=== PATIENT | female | born 1985 | race Hispanic/Latino ===

== ENCOUNTER 2022-07-19 14:00 | Emergency (ER) | payer OTHER, SELFPAY ==
[2022-07-19] VITALS (8 sets, daily range): BP systolic 125–131; BP diastolic 80–92; PULSE 70–99; RESP 16–20; TEMP 36.7–37.3; O2SAT 97–100; BMI 51.5
--- NOTE | 2022-07-19 14:16 | DI.RAD.S_ITS ---
PROCEDURE: XR CHEST 2V INDICATIONS: cough, SOB TECHNIQUE: 2 views of the chest were acquired. COMPARISON: None. FINDINGS: Surgical changes and devices: None. Lungs and pleura: Lungs are clear. No pleural effusions or pneumothorax. Mediastinum: Mediastinal contours are normal. Heart size is normal. Bones and chest wall: No suspicious bony abnormalities. Soft tissues appear unremarkable. IMPRESSION: No acute cardiopulmonary process demonstrated radiographically. Dictated by: Akash Pollack M.D. on 07/19/2022 at 14:48 Approved by: Akash Pollack M.D. on 07/19/2022 at 14:49
[2022-07-19 15:00] LABS: Influenza A - CEPHEID Flu A NEGATIVE (NEGATIVE); Influenza B - CEPHEID Flu B NEGATIVE (NEGATIVE); Respiratory Syncytial Virus Negative (Negative)
[2022-07-19 15:08] LABS: COVID-19 CEPHEID 4-PLEX PCR Negative (Negative)
--- NOTE | 2022-07-19 19:12 | PC.NURSE ---
Pt works at group [employer], was recently in a home that was covid positive. Pt feeling unwell.
--- NOTE | 2022-07-19 19:46 | ED.URI ---
HPI - URI/Sore Throat <Elmer Aguero PA-C - Last Filed: 07/19/22 20:34> General Chief Complaint: Upper Respiratory Symptoms Stated Complaint: lungs feel like they are on fire Time Seen by Provider: 07/19/22 18:32 History of Present Illness HPI Narrative: 36-year-old female presents to the ED with 1 week of URI symptoms. 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 Patient complains of a cough, trouble breathing. Patient denies fever, chills, nausea, vomiting, diarrhea, abdominal pain. Patient endorses past history of asthma. Patient does not have an albuterol inhaler, is requesting 1 today. Patient however denies wheezing over the last week. Patient is also on-call 24 hours a day which makes it hard for her to get any rest. Patient is requesting some time off so she can convalesce from this infection. Related Data Previous Rx's Medication Instructions Recorded albuterol sulfate 90 mcg/actuation 2 puff inhalation Q4-6H PRN 07/19/22 aerosol inhaler (ProAir HFA) shortness of breath or wheezing #6.7 grams benzonatate 200 mg capsule 200 mg PO TID PRN cough #30 caps 07/19/22 Allergies Allergy/AdvReac Type Severity Reaction Status Date / Time hydrocodone [HYDROCODONE] Allergy Unknown Unverified 11/01/17 12:34 Review of Systems <Elmer Aguero PA-C - Last Filed: 07/19/22 20:34> Review of Systems ROS Unobtainable: All systems reviewed & are unremarkable except as noted in HPI and below Constitutional Constitutional: Denies chills, Reports fatigue, Denies fever(s), Denies frequent falls, Reports lethargy and Denies weakness Comments: Lightheadedness Eyes Eyes: Denies change in vision, Denies eye discharge, Denies irritation and Denies loss of vision ENT Ears, Nose, Mouth, and Throat: Denies change in voice, Denies dizziness, Denies neck pain, Denies sore throat and Denies throat swelling Cardiovascular Cardiovascular: Denies chest pain, Denies irregular heart rhythm, Denies lightheadedness, Denies palpitations, Reports dyspnea, Denies dyspnea on exertion and Denies orthopnea Respiratory Respiratory: Reports cough, Reports dyspnea, Denies dyspnea on exertion and Denies wheezing Gastrointestinal Gastrointestinal: Denies abdominal pain, Denies change in bowel habits, Denies diarrhea, Denies nausea and Denies vomiting Genitourinary Genitourinary: Denies hematuria, Denies flank pain, Denies urinary incontinence and Denies urinary urgency Musculoskeletal Musculoskeletal: Denies back pain, Denies muscle weakness, Denies neck pain, Denies numbness and Denies tingling Integumentary/Breasts Skin/Breast: Denies pruritus, Denies erythema, Denies rash and Denies wounds Neurologic Neurologic: Denies behavioral changes, Denies confusion, Denies dizziness, Denies frequent falls, Denies loss of vision, Denies numbness, Denies tingling and Denies weakness Psychiatric Psychiatric: Denies anxiety, Denies behavioral changes, Denies confusion, Denies depression, Denies homicidal ideation and Denies suicidal ideation Endocrine Endocrine: Reports fatigue, Denies flushing and Denies palpitations Hematologic/Lymphatic Hematologic/Lymphatic: Denies easy bruising Allergic/Immunologic Allergic/Immunologic: Denies urticaria, Denies throat swelling and Denies wheezing Exam <Elmer Aguero PA-C - Last Filed: 07/19/22 20:34> Narrative Exam Narrative: Const General:?cooperative, healthy appearing and comfortable [facility] Head:?normal to inspection Ears:?hearing grossly normal bilaterally Nose:?external nose normal Face and sinus:?normal facial exam and sinuses nontender Mouth:?oral mucosae normal Throat:?posterior oropharynx normal Eyes General:?appearance normal, both eyes and all related structures Neck Neck:?normal visual inspection and no lymphadenopathy noted Resp Effort & Inspection:?normal respiratory effort Auscultation:?clear to auscultation bilaterally Cardio Rate:?regular rate Rhythm:?regular rhythm Neuro General:?patient alert, patient awake and patient oriented x3 Initial Vital Signs Initial Vital Signs: Vital Signs Temperature 98.0 F 07/19/22 14:07 Pulse Rate 99 H 07/19/22 14:07 Respiratory Rate 16 07/19/22 14:07 Blood Pressure 125/92 H 07/19/22 14:07 Pulse Oximetry 99 07/19/22 14:07 Oxygen Delivery Method 07/19/22 14:07 <Yung Moreno DO - Last Filed: 07/20/22 05:02> Initial Vital Signs Initial Vital Signs: Vital Signs Temperature 98.0 F 07/19/22 14:07 Pulse Rate 99 H 07/19/22 14:07 Respiratory Rate 16 07/19/22 14:07 Blood Pressure 125/92 H 07/19/22 14:07 Pulse Oximetry 99 07/19/22 14:07 Oxygen Delivery Method 07/19/22 14:07 Course <Elmer Aguero PA-C - Last Filed: 07/19/22 20:34> Orders Ordered: ED Orders 07/19/22 14:15 Covid-19 + FLU A/B + RSV - PCR Stat 07/19/22 14:16 XR chest 2V Stat Vital Signs Vital signs: Vital Signs - 8 hr 07/19/22 14:07 07/19/22 18:26 07/19/22 18:27 Temperature 98.0 F Pulse Rate 99 H 98 H Respiratory Rate 16 Blood Pressure 125/92 H 131/80 Pulse Oximetry 99 97 Oxygen Delivery Method Room Air 07/19/22 18:27 07/19/22 18:30 07/19/22 19:00 Temperature Pulse Rate 87 83 70 Respiratory Rate Blood Pressure Pulse Oximetry 99 99 99 Oxygen Delivery Method 07/19/22 20:17 07/19/22 19:30 07/19/22 20:00 Temperature 99.2 F 99.2 F Pulse Rate 76 75 77 Respiratory Rate 20 20 Blood Pressure 131/80 131/80 Pulse Oximetry 99 100 99 Oxygen Delivery Method Room Air <Yung Moreno DO - Last Filed: 07/20/22 05:02> Orders Ordered: ED Orders 07/19/22 14:15 Covid-19 + FLU A/B + RSV - PCR Stat 07/19/22 14:16 XR chest 2V Stat Vital Signs Vital signs: Vital Signs - 8 hr 07/19/22 14:07 07/19/22 18:26 07/19/22 18:27 Temperature 98.0 F Pulse Rate 99 H 98 H Respiratory Rate 16 Blood Pressure 125/92 H 131/80 Pulse Oximetry 99 97 Oxygen Delivery Method Room Air 07/19/22 18:27 07/19/22 18:30 07/19/22 19:00 Temperature Pulse Rate 87 83 70 Respiratory Rate Blood Pressure Pulse Oximetry 99 99 99 Oxygen Delivery Method 07/19/22 20:17 07/19/22 19:30 07/19/22 20:00 Temperature 99.2 F 99.2 F Pulse Rate 76 75 77 Respiratory Rate 20 20 Blood Pressure 131/80 131/80 Pulse Oximetry 99 100 99 Oxygen Delivery Method Room Air MDM - URI/Sore Throat <Elmer Aguero PA-C - Last Filed: 07/19/22 20:34> Lab Data Labs: Lab Results 07/19/22 Range/Units 14:15 SARS-CoV-2 (PCR) Negative (Negative) Influenza A (RT-PCR) Flu a negative (NEGATIVE) Influenza B (RT-PCR) Flu b negative (NEGATIVE) RSV (PCR) Negative (Negative) Imaging Data Chest x-ray: Radiologist's Impression: PROCEDURE:? XR CHEST 2V ? INDICATIONS:? cough, SOB ? TECHNIQUE:? 2 views of the chest were acquired.? ? COMPARISON:? None. ? FINDINGS:? ? Surgical changes and devices:? None.? ? Lungs and pleura:? Lungs are clear.? No pleural effusions or pneumothorax.? ? Mediastinum:? Mediastinal contours are normal.? Heart size is normal.? ? Bones and chest wall:? No suspicious bony abnormalities.? Soft tissues appear unremarkable.? ? IMPRESSION:? No acute cardiopulmonary process demonstrated radiographically. ? ? Dictated by: Akash Pollack M.D. on 07/19/2022 at 14:48 ? ? Approved by: Akash Pollack M.D. on 07/19/2022 at 14:49 ? [facility] Narrative Medical decision making narrative: 36-year-old female presents to the ED with 1 week of URI symptoms. Concern for pneumonia versus URI versus other. Respiratory swab was negative for COVID, RSV, influenza. Chest x-ray without acute findings. Patient's symptoms likely due to a viral URI of unknown etiology. Prescribed Tessalon Perles for cough. Also prescribed a rescue inhaler to keep on hand. Recommend some days off from work to recuperate. ED return precautions were discussed with patient. Patient verbalized understanding. <Yung Moreno DO - Last Filed: 07/20/22 05:02> Lab Data Labs: Lab Results 07/19/22 Range/Units 14:15 SARS-CoV-2 (PCR) Negative (Negative) Influenza A (RT-PCR) Flu a negative (NEGATIVE) Influenza B (RT-PCR) Flu b negative (NEGATIVE) RSV (PCR) Negative (Negative) Discharge Plan Departure Patient Disposition: Home Clinical Impression: Upper respiratory infection Instructions: DI for Viral Upper Respiratory Infection -- Adult Activity Restrictions/Additional Instructions: You were evaluated in the ED today for upper respiratory symptoms. You tested negative for COVID, RSV, influenza. Your chest x-ray was normal as well. Your symptoms are likely due to a upper respiratory infection. You are being prescribed Tessalon Perles for cough. Your also being prescribed an albuterol inhaler, given that you have asthma. Continue to stay well hydrated. Please return to the ED if you experience chest pain, shortness of breath. Prescriptions: New albuterol sulfate [ProAir HFA] 90 mcg/actuation HFA aerosol inhaler 2 puff inhalation Q4-6H PRN (Reason: shortness of breath or wheezing) Qty: 6.7 0RF benzonatate 200 mg capsule 200 mg PO TID PRN (Reason: cough) Qty: 30 0RF Referrals: Anson Dewitt MD [Primary Care Provider] - Stand Alone Forms: Work Release Note Visit Report Forms: Patient Portal/API <Yung Moreno DO - Last Filed: 07/20/22 05:02> [facility] Emilyature Attestation: I was immediately available in the department for consultation. This documentation has been reviewed and I agree with assessment and plan. Supervised by Yung Moreno DO
== END 2022-07-19 20:15 | disposition home or self-care (01) ==
PROVIDERS: Emergency Medicine; Emergency Provider Student in an Organized Health Care Education/Training Program; Family Provider Family Medicine; PCP Family Medicine
DX: J06.9 Acute upper respiratory infection, unspecified (principal); Z20.822 Contact with and (suspected) exposure to COVID-19
CPT/HCPCS: 0241U; 71046; 99281; 99283

== ENCOUNTER 2022-12-27 15:13 | Emergency (ER) | payer OTHER, SELFPAY ==
[2022-12-27 15:21] VITALS: BP 113/79; PULSE 85; RESP 20; TEMP 37; O2SAT 100; BMI 48.7
--- NOTE | 2022-12-27 15:36 | DI.RAD.S_ITS ---
PROCEDURE: XR CHEST 1V INDICATIONS: chest pain TECHNIQUE: One view of the chest was acquired. COMPARISON: [facility], CR, XR CHEST 2V, 07/19/2022, 14:19. FINDINGS: Surgical changes and devices: None. Lungs and pleura: Lungs are clear. No pleural effusions or pneumothorax. Mediastinum: Mediastinal contours appear normal. Heart size is normal. Bones and chest wall: No suspicious bony lesions. Overlying soft tissues appear unremarkable. IMPRESSION: No acute cardiopulmonary abnormality. Dictated by: Tariq Andrade M.D. on 12/27/2022 at 16:30 Approved by: Tariq Andrade M.D. on 12/27/2022 at 16:31
--- NOTE | 2022-12-27 16:10 | PC.NURSE ---
pt exerted herself today at which time she became SOB and dizzy thus having a syncopal episode landing half on her porch hitting her head and right shoulder her legs hitting concrete hurting her right knee. pt states she was probably not unconscious for more than a minute, c/o pain to the temporal parietal area of the right side of her head, her teeth hurt but she is able to put them together without problems but is unable to open her mouth completely without pain. pt has bruise to the axilla of the right arm full ROM to right should but states that it feels like somethingis restricting her movement. pt has bruise to the right knee but is able to move her leg and walk on it without difficulty. pt states she has been dizzy like this before when she over exerts herself. pt has diabetes but has not taken medication since her weight losss surgery she also does not check her sugar. pt also has a hx of asthma but denies any respiratory problems at this time. pt is aao x 3 denies any dizziness or SOB at this time
[2022-12-27 16:19] VITALS: PULSE 81; RESP 35; O2SAT 99
[2022-12-27 16:30] VITALS: PULSE 82; RESP 14; O2SAT 100
[2022-12-27 17:00] VITALS: PULSE 74; RESP 19; O2SAT 100
--- NOTE | 2022-12-27 17:03 | DI.RAD.S_ITS ---
PROCEDURE: XR SHOULDER RT MIN 2V INDICATIONS: injury TECHNIQUE: 3 views of the shoulder were acquired. COMPARISON: None. FINDINGS: Bones: No fractures or dislocations. No suspicious bony lesions. Visualized ribs appear intact. Soft tissues: No suspicious soft tissue calcifications. IMPRESSION: No acute osseous abnormality. If symptoms persist, follow-up radiographs and/or CT or MRI may be helpful for further evaluation. Dictated by: Jesus Linares M.D. on 12/27/2022 at 18:02 Approved by: Jesus Linares M.D. on 12/27/2022 at 18:04
--- NOTE | 2022-12-27 17:04 | DI.RAD.S_ITS ---
PROCEDURE: XR KNEE RT 3V INDICATIONS: injury TECHNIQUE: 3 views of the knee were acquired. COMPARISON: None. FINDINGS: Bones: No fractures or dislocations. No suspicious bony lesions. Mild medial and patellofemoral compartment degenerative changes. Soft tissues: No joint effusion. No suspicious soft tissue calcifications. IMPRESSION: No acute osseous abnormality. If symptoms persist, follow-up radiographs and/or cross-sectional imaging may be helpful for further evaluation. Dictated by: Jesus Linares M.D. on 12/27/2022 at 18:04 Approved by: Jesus Linares M.D. on 12/27/2022 at 18:07
--- NOTE | 2022-12-27 17:30 | ED_ITS ---
HPI - Syncope General Chief Complaint: Syncope Stated Complaint: fall, hit rt arm, head, rt leg pain, LOC Time Seen by Provider: 12/27/22 17:30 Source: patient Mode of arrival: Family Vehicle Limitations: no limitations History of Present Illness HPI narrative: Patient 37-year-old female history of morbid obesity, gastric sleeve, diabetes but frequently hypoglycemic, presents today with syncopal episode pain and right shoulder mandible and right knee. She reports that she has passed out regularly secondary to exertion and hypoglycemic episodes. Today there dog got lost she was out and about exerting herself trying to find the dog she is going up some stairs when she passed out fell landing on her right side. There may have been a brief loss of consciousness. She is no numbness tingling or weakness she is no nausea vomiting she is not on any antiplatelet or anticoagulation medication. Really complaining of some jaw pain along with right knee pain and right shoulder pain. She initially was ambulatory into the ED but she reports now that she is been here for some time pain has worsened. She feels like her teeth are a little bit off but she seems to be speaking just fine. There is no significant or obvious trauma to her head or face. Related Data Previous Rx's Medication Instructions Recorded albuterol sulfate 90 mcg/actuation 2 puff inhalation Q4-6H PRN 07/19/22 aerosol inhaler (ProAir HFA) shortness of breath or wheezing #6.7 grams benzonatate 200 mg capsule 200 mg PO TID PRN cough #30 caps 07/19/22 oxycodone-acetaminophen 5 mg-325 1 tab PO Q6H PRN pain #10 tabs 12/27/22 mg tablet (Percocet) Allergies Allergy/AdvReac Type Severity Reaction Status Date / Time hydrocodone [HYDROCODONE] Allergy Unknown Verified 12/27/22 19:15 Review of Systems Review of Systems ROS Unobtainable: All systems reviewed & are unremarkable except as noted in HPI and below Patient History Social History Smoking Status: Never smoker Smoking Status: Never smoker alcohol intake frequency: 0-2 drinks per day Substance Use Type: does not use Exam Initial Vital Signs Initial Vital Signs: Vital Signs Temperature 98.6 F 12/27/22 15:21 Pulse Rate 85 12/27/22 15:21 Respiratory Rate 20 12/27/22 15:21 Blood Pressure 113/79 12/27/22 15:21 Pulse Oximetry 100 12/27/22 15:21 Oxygen Delivery Method Room Air 12/27/22 15:21 GENERAL: Alert pleasant 37-year-old female HEENT: Head atraumatic,EOMI, pupils reactive, face symmetric, MOUTH: No obvious dental fracture mild pain in right TMJ however teeth line she is able to bite on a popsicle stick CARDIOVASCULAR: Regular rate and rhythm without murmurs, rubs or gallops. RESPIRATORY: Breath sounds equal bilaterally, no wheezes rales or rhonchi. ABDOMEN: Soft, nontender. Normoactive bowel sounds all 4 quadrants. No guarding or rebound. EXTREMITIES: Normal range of motion, no clubbing or edema. Neurovascularly intact Right knee contusion noted tender to touch but knee is stable distal pedal pulse intact. NEUROLOGICAL: Alert and oriented x4.Normal gait and speech. SKIN: Warm, dry, no laceration, no petechiae, no rashes or lesions. Course Orders Ordered: ED Orders 12/27/22 15:36 XR chest 1V Stat Complete Blood Count AUTO DIFF Stat Comprehensive Metabolic Panel Stat Lipase Stat Magnesium Stat PTT Partial Thromboplastin Romel Stat Prothrombin Time INR Stat Troponin & CK Cardiac Panel Stat EKG-12 Lead Stat 12/27/22 17:03 XR shoulder RT min 2V Stat 12/27/22 17:04 XR knee RT 3V Stat 12/27/22 18:01 XR mandible min 4V Stat Discontinued Medications Aspirin (Aspirin 81 Mg Chew Tab) 324 mg PO NOW ONE Stop: 12/27/22 15:36 Last Admin: 12/27/22 17:05 Dose: Not Given Documented By: BRYN Ketorolac Tromethamine (Ketorolac 30 Mg/Ml Vial) 30 mg IM NOW ONE Stop: 12/27/22 17:58 Last Admin: 12/27/22 18:07 Dose: 30 mg Documented By: BRYN Oxycodone/Acetaminophen (Oxycodone/Acetaminophen 5/325 Tablet) 1 tab PO NOW ONE Stop: 12/27/22 17:59 Last Admin: 12/27/22 18:07 Dose: 1 tab Documented By: BRYN Vital Signs Vital signs: Vital Signs - 8 hr 12/27/22 15:21 12/27/22 16:19 12/27/22 16:30 Temperature 98.6 F Pulse Rate 85 81 82 Respiratory Rate 20 35 H 14 Blood Pressure 113/79 Pulse Oximetry 100 99 100 Oxygen Delivery Method Room Air 12/27/22 17:00 12/27/22 17:36 12/27/22 18:00 Temperature Pulse Rate 74 83 Respiratory Rate 19 19 Blood Pressure Pulse Oximetry 100 80 L 100 Oxygen Delivery Method MDM - Syncope Lab Data Labs: Point of Care Testing Glucose POC 86 Imaging Data Chest x-ray: Radiologist's Impression: PROCEDURE:? XR CHEST 1V ? INDICATIONS:? chest pain ? TECHNIQUE:? One view of the chest was acquired.? ? COMPARISON:? [facility], , XR CHEST 2V, 07/19/2022, 14:19. ? FINDINGS:? ? Surgical changes and devices:? None.? ? Lungs and pleura:? Lungs are clear.? No pleural effusions or pneumothorax.? ? Mediastinum:? Mediastinal contours appear normal.? Heart size is normal.? ? Bones and chest wall:? No suspicious bony lesions.? Overlying soft tissues appear unremarkable.? ? IMPRESSION:? No acute cardiopulmonary abnormality. ? ? ? Dictated by: Traiq Andrade M.D. on 12/27/2022 at 16:30 ? ? Extremity x-ray #1: Radiologist's Impression: PROCEDURE:? XR SHOULDER RT MIN 2V ? INDICATIONS:? injury ? TECHNIQUE:? 3 views of the shoulder were acquired.? ? COMPARISON:? None. ? FINDINGS:? ? Bones:? No fractures or dislocations.? No suspicious bony lesions.? Visualized ribs appear intact.? ? Soft tissues:? No suspicious soft tissue calcifications.? ? IMPRESSION:? No acute osseous abnormality.? If symptoms persist, follow-up radiographs and/or CT or MRI may be helpful for further evaluation. ? ? Dictated by: Jesus Linares M.D. on 12/27/2022 at 18:02 ? ? Approved by: Jesus Linares M.D. on 12/27/2022 at 18:04? Extremity x-ray #2: Radiologist's Impression: PROCEDURE:? XR KNEE RT 3V ? INDICATIONS:? injury ? TECHNIQUE:? 3 views of the knee were acquired.? ? COMPARISON:? None. ? FINDINGS:? ? Bones:? No fractures or dislocations.? No suspicious bony lesions.? Mild medial and patellofemoral compartment degenerative changes.? ? Soft tissues:? No joint effusion.? No suspicious soft tissue calcifications.? ? ? IMPRESSION:? No acute osseous abnormality.? If symptoms persist, follow-up radiographs and/or cross-sectional imaging may be helpful for further evaluation. ? ? Dictated by: Jesus Linares M.D. on 12/27/2022 at 18:04 ? ? Approved by: Jesus Linares M.D. on 12/27/2022 at 18:07? ECG Data Interpretation: Sinus rhythm rate 85 NE interval 154 QRS [address] changes MDM Narrative Medical decision making narrative: Patient 37-year-old female presents today for syncopal episode. She reports that she is these episodes all the time the episode itself was unremarkable. She is not hypoglycemic or hyperglycemic she has a glucose of 86 she is awake and alert. EKG does not show any abnormality. I sent to get blood work by nursing staff but she was a hard stick. She really is only complaining of IV injury she sustained. X-rays are negative. She is not high-risk for having intracranial hemorrhage he is not having any signs or symptoms of intracranial hemorrhage. I do not think head CT is needed. She is really complaining of some right-sided jaw pain x- ray is negative teeth align there is no evidence of severe trauma or injury to the face or jaw. Suspect that everything is sore and bruised. She tolerated Percocet and Toradol in the emergency department without any. Discharge Plan Departure Patient Disposition: Home Clinical Impression: Knee sprain, Mandible pain Instructions: Contusion, Knee Sprain, Closed Head Injury Activity Restrictions/Additional Instructions: *You have been diagnosed with right knee sprain, close head injury contusion *What to do: At the time increase activity as tolerated wear knee brace as tolerated. You may require outpatient MRI in 2-3 weeks if still having knee pain. *Continue to take medications as directed Percocet 1 tablet every 6 hours if needed for severe pain --> sent to [facility] Motrin 600 mg every 6 hours if needed for [id number] pain however refrain from using this often secondary to your gastric sleeve Tylenol 650 mg every 4-6 hours please be cautious complaining this with Percocet *Follow up with your primary care provider in 2-3 days or call [phone] *Return to ER if you should have increasing pain confusion persistent vomiting or any new, worsening or concerning symptoms CONTROLLED SUBSTANCE DISCHARGE (Narcotoic/benzodiazepine/Flexeril/Phenergan) 1. You have been prescribed narcotic medications, it does have acetaminophen/Tylenol/paracetamol in it, DO NOT TAKE MORE THAN 4,00mg in 24 h ours of Tylenol. TRAMADOL DOES NOT CONTAIN TYLENOL 2. Please understand that we cannot provide further refills of narcotics, benzodiazepines or controlled substances through the ED and her pain management will need to be through your provider. 3. While on these medications you cannot drive or operate heavy machinery. 4. You cannot sign legal documents or perform any duties such as this. 5. As long as you're taking opiate pain medications he should also be taking a stool softener such as Colace, Dulcolax, MiraLAX or prune juice, to help avoid constipation. Prescriptions: New oxycodone-acetaminophen [Percocet] 5-325 mg tablet 1 tab PO Q6H PRN (Reason: pain) Qty: 10 0RF No Action albuterol sulfate [ProAir HFA] 90 mcg/actuation HFA aerosol inhaler 2 puff inhalation Q4-6H PRN (Reason: shortness of breath or wheezing) Qty: 6.7 0RF benzonatate 200 mg capsule 200 mg PO TID PRN (Reason: cough) Qty: 30 0RF Referrals: Anson Dewitt MD [Primary Care Provider] - Stand Alone Forms: Patient Portal/API, Work Release Note
[2022-12-27 17:36] VITALS: O2SAT 80
[2022-12-27 18:00] VITALS: PULSE 83; RESP 19; O2SAT 100
--- NOTE | 2022-12-27 18:01 | DI.RAD.S_ITS ---
PROCEDURE: XR MANDIBLE MIN 4V INDICATIONS: right sided pain TECHNIQUE: 4 views of the mandible were acquired. COMPARISON: None. FINDINGS: Bones: No fractures or dislocations. No suspicious bony lesions. Soft tissues: Visualized sinuses appear clear. No suspicious soft tissue densities. IMPRESSION: No acute fracture identified. If symptoms persist, follow-up radiographs and/or CT may be helpful for further evaluation. Dictated by: Jesus Linares M.D. on 12/27/2022 at 19:18 Approved by: Jesus Linares M.D. on 12/27/2022 at 19:21
[2022-12-27] MEDS: KETOROLAC 30 MG/ML VIAL IM (18:07)
[2022-12-27] MEDS: OXYCODONE/ACETAMINOPHEN 5/325 TABLET 1 TAB PO (18:07)
== END 2022-12-27 19:40 | disposition home or self-care (01) ==
PROVIDERS: Emergency Provider Emergency Medicine; Family Provider Family Medicine; PCP Family Medicine
DX: S83.91XA Sprain of unspecified site of right knee, initial encounter (principal); R68.84 Jaw pain; M25.511 Pain in right shoulder; W10.9XXA Fall (on) (from) unspecified stairs and steps, initial encounter; R55 Syncope and collapse
CPT/HCPCS: 70110; 71045; 73030; 73562; 82962; 93005; 93010; 96372; 99284; J1885

== ENCOUNTER 2023-06-22 14:53 | Emergency (ER) | payer OTHER, SELFPAY ==
[2023-06-22 14:55] VITALS: BP 118/80; PULSE 110; RESP 20; TEMP 37.2; O2SAT 99; BMI 54.9
[2023-06-22 15:48] LABS: Bilirubin Urine UA NEGATIVE (NEGATIVE); Color Urine UA YELLOW; Glucose Urine UA NEGATIVE (Negative); Ketones Urine UA NEGATIVE (NEGATIVE); Leukocyte Esterase Urine UA 1+ (NEGATIVE); Nitrite Urine UA NEGATIVE (Negative); Occult Blood Urine UA NEGATIVE (Negative); Protein Urine UA NEGATIVE (Negative); Specific Gravity Urine UA >=1.030 (1.000-1.035); Urobilinogen Urine UA 0.2 E.U./dL (0.2)
[2023-06-22 16:06] LABS: Pregnancy Test Urine Negative (Negative)
[2023-06-22 16:09] LABS: Appearance Urine UA Slightly Cloudy; pH Urine UA 5.5 (4.5-8.0)
[2023-06-22 16:10] LABS: Bacteria Urine Few (2-10); Culture Indicated Urine Specimen Cultured; RBC Urine 0-1/HPF (0-5/HPF); Squamous Epithelial Cell Urine 5-10 /HPF (0-5/HPF); WBC Urine 1-5/HPF (0-5/HPF)
[2023-06-22 16:16] LABS: Influenza A - CEPHEID Flu A NEGATIVE (NEGATIVE); Influenza B - CEPHEID Flu B NEGATIVE (NEGATIVE); Respiratory Syncytial Virus Negative (Negative)
[2023-06-22 16:29] LABS: COVID-19 CEPHEID 4-PLEX PCR Negative (Negative)
[2023-06-22 16:49] VITALS: BP 126/90; PULSE 87; RESP 18; O2SAT 100
--- NOTE | 2023-06-22 17:30 | ED_ITS ---
HPI - URI/Sore Throat <Ainsley Low PA-C - Last Filed: 06/22/23 17:35> General Chief Complaint: Upper Respiratory Symptoms Stated Complaint: Coughing, Fever 102 Time Seen by Provider: 06/22/23 15:16 Source: patient Mode of arrival: Ambulatory History of Present Illness HPI Narrative: Patient is a 37-year-old female who presents with approximately 1 week of fever, cough, congestion. Today is the 1st day she has felt well enough to come be examined. She has been staying home and resting since . She and her partner actively trying to become with a sperm donor. She does not know if she could be , her menses is 5 days late. She denies nausea, vomiting, urinary symptoms, diarrhea or constipation. She has not taken a COVID test but a co-worker was recently diagnosed with COVID. Related Data Previous Rx's Medication Instructions Recorded albuterol sulfate 90 mcg/actuation 2 puff inhalation Q4-6H PRN 07/19/22 aerosol inhaler (ProAir HFA) shortness of breath or wheezing #6.7 grams benzonatate 200 mg capsule 200 mg PO TID PRN cough #30 caps 07/19/22 oxycodone-acetaminophen 5 mg-325 1 tab PO Q6H PRN pain #10 tabs 12/27/22 mg tablet (Percocet) Allergies Allergy/AdvReac Type Severity Reaction Status Date / Time hydrocodone [HYDROCODONE] Allergy Unknown Verified 12/27/22 19:15 Review of Systems <Ainsley Low PA-C - Last Filed: 06/22/23 17:35> Review of Systems ROS Unobtainable: All systems reviewed & are unremarkable except as noted in HPI and below Patient History <Ainsley Low PA-C - Last Filed: 06/22/23 17:35> Social History Smoking Status: Never smoker Smoking Status: Never smoker alcohol intake frequency: 0-2 drinks per day Substance Use Type: does not use Exam <Ainsley Low PA-C - Last Filed: 06/22/23 17:35> Narrative Exam Narrative: GENERAL: 37 year old patient appears stated age. Well-developed patient, in no distress. NEURO: AOx3. HEAD: Atraumatic. Normocephalic. EYES: Pupils equal round and reactive. Extraocular motions intact. No scleral icterus. No injection or drainage. ENT: Nose without bleeding or purulent drainage. Throat without erythema, tonsillar hypertrophy or exudate. Airway patent. HEART: Regular rate and rhythm RESPIRATORY: Bilateral lungs clear to auscultation, no rhonchi, rales or wheeze. EXTREMITIES: No edema or joint tenderness. SKIN: No rash or erythema of visible areas Initial Vital Signs Initial Vital Signs: Vital Signs Temperature 98.9 F 06/22/23 14:55 Pulse Rate 110 H 06/22/23 14:55 Respiratory Rate 20 06/22/23 14:55 Blood Pressure 118/80 06/22/23 14:55 Pulse Oximetry 99 06/22/23 14:55 Oxygen Delivery Method Room Air 06/22/23 14:55 <Zofia Beltran MD - Last Filed: 06/22/23 18:08> Initial Vital Signs Initial Vital Signs: Vital Signs Temperature 98.9 F 06/22/23 14:55 Pulse Rate 110 H 06/22/23 14:55 Respiratory Rate 20 06/22/23 14:55 Blood Pressure 118/80 06/22/23 14:55 Pulse Oximetry 99 06/22/23 14:55 Oxygen Delivery Method Room Air 06/22/23 14:55 Course <Ainsley Low PA-C - Last Filed: 06/22/23 17:35> Orders Ordered: ED Orders 06/22/23 15:05 Covid-19 + FLU A/B + RSV - PCR Stat Test Urine Stat Urinalysis and Microscopic Stat Urine Culture Stat Vital Signs Vital signs: Vital Signs - 8 hr 06/22/23 14:55 06/22/23 16:49 Temperature 98.9 F Pulse Rate 110 H 87 Respiratory Rate 20 18 Blood Pressure 118/80 126/90 Pulse Oximetry 99 100 Oxygen Delivery Method Room Air Room Air <Zofia Beltran MD - Last Filed: 06/22/23 18:08> Orders Ordered: ED Orders 06/22/23 15:05 Covid-19 + FLU A/B + RSV - PCR Stat Test Urine Stat Urinalysis and Microscopic Stat Urine Culture Stat Vital Signs Vital signs: Vital Signs - 8 hr 06/22/23 14:55 06/22/23 16:49 Temperature 98.9 F Pulse Rate 110 H 87 Respiratory Rate 20 18 Blood Pressure 118/80 126/90 Pulse Oximetry 99 100 Oxygen Delivery Method Room Air Room Air MDM - URI/Sore Throat <Ainsley Low PA-C - Last Filed: 06/22/23 17:35> Lab Data Labs: Lab Results 06/22/23 Range/Units 15:05 Urine Color Yellow Urine Appearance Slightly cloudy Urine pH 5.5 (4.5-8.0) Ur Specific [place] >=1.030 H (1.000-1.035) Urine Protein Negative (Negative) Urine Glucose (UA) Negative (Negative) g/dL Urine Ketones Negative (NEGATIVE) Urine Occult Blood Negative (Negative) Urine Nitrate Negative (Negative) Urine Bilirubin Negative (NEGATIVE) Urine Urobilinogen 0.2 (0.2) E.U./dL Ur Leukocyte Esterase 1+ H (NEGATIVE) Urine RBC 0-1/hpf (0-5/HPF) Urine WBC 1-5/hpf (0-5/HPF) Ur Squamous Epith Cells 5-10 /hpf H (0-5/HPF) Urine Bacteria Few (2-10) H (None) Ur Culture Indicated? Specimen cultured Urine Test Negative (Negative) SARS-CoV-2 (PCR) Negative (Negative) Influenza A (RT-PCR) Flu a negative (NEGATIVE) Influenza B (RT-PCR) Flu b negative (NEGATIVE) RSV (PCR) Negative (Negative) MDM Narrative Medical decision making narrative: Multiple etiologies for patient's symptoms considered including, but not limited to: Viral respiratory infection, COVID, flu, RSV. ? Quad pack viral PCR test negative. Urine slightly contaminated, we will wait for culture as patient has no urinary symptoms. negative. Discussed these findings with the patient, advised ongoing supportive care, rest, hydration. Given work note as requested. Heart rate initially 110 but 87 on recheck after patient resting. Patient afebrile and nontoxic appearing. Patient's symptoms improved over duration of stay with above-stated therapies. Findings and discharge diagnosis discussed with patient/family followed by verbalization of understanding Return precautions discussed with patient/family whom verbalize understanding of diagnosis and plan <Zofia Beltran MD - Last Filed: 06/22/23 18:08> Lab Data Labs: Lab Results 06/22/23 Range/Units 15:05 Urine Color Yellow Urine Appearance Slightly cloudy Urine pH 5.5 (4.5-8.0) Ur Specific [place] >=1.030 H (1.000-1.035) Urine Protein Negative (Negative) Urine Glucose (UA) Negative (Negative) g/dL Urine Ketones Negative (NEGATIVE) Urine Occult Blood Negative (Negative) Urine Nitrate Negative (Negative) Urine Bilirubin Negative (NEGATIVE) Urine Urobilinogen 0.2 (0.2) E.U./dL Ur Leukocyte Esterase 1+ H (NEGATIVE) Urine RBC 0-1/hpf (0-5/HPF) Urine WBC 1-5/hpf (0-5/HPF) Ur Squamous Epith Cells 5-10 /hpf H (0-5/HPF) Urine Bacteria Few (2-10) H (None) Ur Culture Indicated? Specimen cultured Urine Test Negative (Negative) SARS-CoV-2 (PCR) Negative (Negative) Influenza A (RT-PCR) Flu a negative (NEGATIVE) Influenza B (RT-PCR) Flu b negative (NEGATIVE) RSV (PCR) Negative (Negative) Discharge Plan Departure Patient Disposition: Home Clinical Impression: Upper respiratory infection Qualifiers: URI type: unspecified viral URI Qualified Code(s): J06.9 - Acute upper respiratory infection, unspecified Instructions: DI for Viral Upper Respiratory Infection -- Adult Activity Restrictions/Additional Instructions: *You have been diagnosed with viral upper respiratory infection. There is no evidence this is COVID, flu or RSV on the test today. As we discussed, your urine sample was not entirely clean so it is difficult to interpret. We will send it to the lab for culture. If it grows a true infection, we will call you and start antibiotics. Otherwise, I would continue to drink lots of fluids, rest, over the counter cold medicines such as DayQuil, NyQuil for symptom relief. *What to do: *Please continue to take your regular medications as directed. [ ] New medication prescriptions sent to your pharmacy: [ ] [ ] New medication written as a paper prescription [x] No new medications given *Please follow up with your primary care provider in 2-3 days, call for an appo intment. Let them know you were seen in the Emergency Department and that we ask that you be seen in follow up. We will electronically transmit a record of today's note if your PCP is in our system *If you do not have a primary care provider please contact the [facility] Resource line at [phone]. They will ask some questions about your medical history and help get you set up with a doctor in the community. *Return to Emergency Department if you should have any new, worsening or concerning symptoms, such as [fever greater than 101 F, shaking chills, worsening pain, persistent vomiting or other concerning symptoms]. Prescriptions: No Action albuterol sulfate [ProAir HFA] 90 mcg/actuation HFA aerosol inhaler 2 puff inhalation Q4-6H PRN (Reason: shortness of breath or wheezing) Qty: 6.7 0RF benzonatate 200 mg capsule 200 mg PO TID PRN (Reason: cough) Qty: 30 0RF oxycodone-acetaminophen [Percocet] 5-325 mg tablet 1 tab PO Q6H PRN (Reason: pain) Qty: 10 0RF Referrals: Anson Dewitt MD [Primary Care Provider] - Stand Alone Forms: Patient Portal/API, Work Release Note ED Sign-out <Zofia Beltran MD - Last Filed: 06/22/23 18:08> Cosign ED Attending Cosdanielature Attestation: I did not see this patient. I was available all times for consultation.
== END 2023-06-22 16:50 | disposition home or self-care (01) ==
PROVIDERS: Emergency Medicine; Emergency Provider Physician Assistant; Family Provider Family Medicine; PCP Family Medicine
DX: J06.9 Acute upper respiratory infection, unspecified (principal)
CPT/HCPCS: 0241U; 81001; 81025; 87086; 99281; 99283